=== PATIENT | female | born 1960 | race American Indian/Alaskan Native ===

== ENCOUNTER 2017-09-05 13:32 | Day surgery (SDC) | payer OTHER ==
--- NOTE | 2017-09-05 14:29 | Anesthesia Consultation ---
Anesthesia Consult and Med Hx Date of service: 09/05/17 - Airway Anesthetic Teeth Evaluation: Poor ROM Head & Neck: Adequate Mental/Hyoid Distance: Adequate Mallampati Class: Class III Intubation Access Assessment: Probably Good - Pulmonary Exam CTA: Yes - Cardiac Exam Cardiac Exam: RRR - Pre-Operative Health Status ASA Pre-Surgery Classification: ASA2 Proposed Anesthetic Plan: General - Pulmonary Hx Smoking: Yes (Occasionally) - Cardiovascular System Hx Hypertension: Yes - Additional Comments Anesthesia Medical History Comments: NAC
--- NOTE | 2017-09-05 14:29 | Anesthesia Day of Surgery ---
Anesthesia Day of Surgery - Day of Surgery Patient Examined: Yes Patient H&P Reviewed: Yes Patient is NPO: Yes
[2017-09-05] MEDS ORDERED: NACL 0.9% 1000 ML 1,000 ML IV SCH (16:00)
[2017-09-05] MEDS ORDERED: WATER FOR IRRIG STERILE IR ONE ×2 (16:25→18:14)
[2017-09-05] MEDS ORDERED: XYLOCAINE MPF 2% ONE (16:30)
[2017-09-05] MEDS ORDERED: DIPRIVAN 10 MG/ML IV ONE ×2 (18:16)
--- NOTE | 2017-09-05 19:09 | Operative Report ---
Operative Report Operative Report: Date of procedure: 09/05/2017 Procedure: Colonoscopy with Endoscopic mucosal resection, snare polypectomy with Hemoclip application. Attending physician: Glenroy Quigley MD Speech Teacher: Glenroy Quigley MD Indication: Patient is a 54-year-old male who presents for colorectal cancer screening. Patient had a positive fecal DNA testing. This colonoscopy serves to evaluate patient so that treatment may be directed based on the findings. Consent: Informed consent was obtained after advising the patient and family regarding nature of this procedure, its indications, potential benefits as well as possible complications including but not limited to bleeding perforation and adverse reaction to medication, infection as well as other cardiopulmonary complications. An informed written and verbal consent was then obtained after due opportunity was provided for questions and answers. Monitoring: Patient was monitored continuously with pulse oximetry and electrocardiographic recordings as well as blood pressure recordings. Vital signs remained stable throughout this procedure with no untoward events. Preoperative assessment: Patient was assessed immediately prior to this procedure for capacity to tolerate monitored anesthesia care and moderate sedation as well as general anesthesia. Patient's ASA classification is 2, Mallampati class is 2, Hyomental distance is 3. Instrument: Fujinon videocolonoscope. [employer] video endoscope. Multiple band ligator: Speedband SuperView Super 7 ([employer]) Medications: Propofol given intravenously in divided doses. For details please refer to anesthesia records. Description of procedure: Patient was placed in the left lateral decubitus position after achieving sedation, a digital rectal examination was performed following which the colonoscope was introduced into the anal verge and advanced to the cecum which was identified by the ileocecal valve, the appendiceal orifice, as well as by the cecal strap and direct transillumination. The colonoscope was subsequently withdrawn with careful inspection of all mucosal surfaces. Patient tolerated this procedure well and was subsequently taken to the recovery room. The following findings were noted. Findings: Patient had a broad-based but semi-pedunculated polyp measuring about 1.5 cm in the sigmoid colon. This was removed by snare electrocautery. In the transverse colon, patient had 2 polyps measuring approximately 8 mm each. These were removed by snare electrocautery. There was a broad-based sessile polyp seen in the transverse colon. This was elevated with submucosal injection of saline and snare polypectomy was performed. The defect at the site was then closed with a Hemoclip. The ascending colon appeared normal . The cecum appeared normal . The sigmoid colon was normal. There were a few scattered diminutive diverticula seen in the sigmoid and descending colon. On the retroflex examination at the anal verge, patient had internal hemorrhoids. Impression: Transverse colon polyp status post endoscopic mucosal resection( submucosal injection with snare electrocautery and closure of mucosal defect with Hemoclip.). Transverse colon polyps status post snare polypectomy . Sigmoid colon polyp status post snare polypectomy. Colonic diverticulosis Prominent friable Internal hemorrhoids, status post successful hemorrhoidal band ligation. Plan: Follow-up pathology report High-fiber diet. Repeat colonoscopy in 1 year given findings of multiple colon polyps
--- NOTE | 2017-09-05 19:12 | Discharge Summary ---
Short Stay Discharge Plan Activity: advance as tolerated Weight Bearing Status: Weight Bear as Tolerated Diet: regular Additional Instructions: Post Sedation D/C Instructions When you return home you may resume your regular diet unless otherwise directed. -Go directly home from the hospital and rest quietly. You may resume normal activities tomorrow. -Do NOT drive, return to work, operate any machinery or make any important personal or business decisions today. -Do NOT drink any alcohol or take nerve or sleeping drugs. They add to the effects of the medicine still present in your body. Follow up with Dr. Quigley in 2 weeks to obtain pathology results and treatment plan. Follow up with: KRISHNA COLEMAN DO [Primary Care Provider] - 7 Days
[2017-09-05 19:22] VITALS: BP 140/78
== END 2017-09-05 13:33 | disposition home or self-care (01) ==
LOC: GIO 13:32
PROVIDERS: ATTEND Internal Medicine Gastroenterology
DX: Z12.11 Encounter for screening for malignant neoplasm of colon (principal); D12.5 Benign neoplasm of sigmoid colon; D12.3 Benign neoplasm of transverse colon; K57.30 Diverticulosis of large intestine without perforation or abscess without bleeding; K64.8 Other hemorrhoids; I10 Essential (primary) hypertension; F17.210 Nicotine dependence, cigarettes, uncomplicated
CPT/HCPCS: 45381; 45385; 45398; 88305; J2704; J7030

== ENCOUNTER 2020-05-02 11:24 | Outpatient (CLI) | payer OTHER ==
--- NOTE | 2020-05-02 14:00 | XRay Report ---
HISTORY:RIGHT WRIST PAIN COMPARISON: None. TECHNIQUE: AP lateral and obliques views were obtained FINDINGS: Bones: Comminuted fracture with impaction of the distal radius metaphyseal diaphyseal region extendin g into the articular space is noted. Ulnar styloid fracture present Joint spaces: Maintained. Soft tissues: No significant abnormality. Additional findings: None. IMPRESSION: 1. Fracture distal radius and ulnar styloid as noted Signer Name: Syed Correa MD Signed: 05/02/2020 1:55 PM Workstation Name: [id number]
== END 2020-05-02 11:25 | disposition home or self-care (01) ==
LOC: XRAY 11:24
PROVIDERS: ATTEND Orthopaedic Surgery
DX: S52.91XA Unspecified fracture of right forearm, initial encounter for closed fracture (principal); X58.XXXA Exposure to other specified factors, initial encounter; Y93.89 Activity, other specified; Y92.89 Other specified places as the place of occurrence of the external cause; Y99.8 Other external cause status

== ENCOUNTER 2020-05-05 10:38 | Day surgery (SDC) | payer OTHER ==
[~2020-05-05 10:38] MED LIST: ACETAMINOPHEN 500 MG TAB PO SCH; BUPIVACAINE/PF (0.25%) 2.5 MG/ML 30 ML VIAL INFILTRATI ONE; LACTATED RINGERS 1,000 ML IV SCH; MIDAZOLAM 2 MG/2 ML INJ IV NR; SODIUM CHLORIDE 0.9% IRR 1,500 ML BOTTLE IR ONE; ceFAZolin/Water 2 GM/20 ML 2 GM/20 ML SYRINGE IV NR; fentaNYL 100 MCG/2 ML INJ IV PRN
--- NOTE | 2020-05-05 11:17 | Anesthesia Day of Surgery ---
Anesthesia Day of Surgery - Day of Surgery Patient Examined: Yes Patient H&P Reviewed: Yes Patient is NPO: Yes
--- NOTE | 2020-05-05 11:17 | Anesthesia Consultation ---
Anesthesia Consult and Med Hx Date of service: 05/05/20 - Airway Anesthetic Teeth Evaluation: Good, Chipped ROM Head & Neck: Adequate Mental/Hyoid Distance: Adequate Mallampati Class: Class III Intubation Access Assessment: Possibly Difficult - Pre-Operative Health Status ASA Pre-Surgery Classification: ASA2 Proposed Anesthetic Plan: General (declines nerve block) - Pulmonary Hx Smoking: Yes (smokes 1 day per week) Hx Respiratory Symptoms: No - Cardiovascular System Hx Hypertension: Yes Hx Heart Attack/AMI: No Hx Percutaneous Transluminal Coronary Angioplasty (PTCA): No - Central Nervous System CVA: No - Endocrine Hx Renal Disease: No Hx Liver Disease: No Hx Insulin Dependent Diabetes: No Hx Non-Insulin Dependent Diabetes: No Hx Thyroid Disease: No - Other Systems Hx Obesity: Yes (BMI 32) - Additional Comments Anesthesia Medical History Comments: No hx anesthetic complications.
[2020-05-05] MEDS ORDERED: ONDANSETRON 4 MG/2 ML INJ IV PRN (11:30)
[2020-05-05] MEDS ORDERED: HYDROmorphone 1 MG/1 ML INJ ONE (12:27)
[2020-05-05] MEDS ORDERED: propofoL 200 MG/20 ML VIAL IV ONE (12:27)
[2020-05-05] MEDS ORDERED: LIDOCAINE MPF (2%) 20 MG/1 ML VIAL 5 ML ONE (12:28)
[2020-05-05] MEDS ORDERED: BUPIVACAINE/PF (0.25%) 2.5 MG/ML 30 ML VIAL INFILTRATI ONE ×2 (12:51→14:27)
[2020-05-05] MEDS ORDERED: SODIUM CHLORIDE 0.9% IRR 1,500 ML BOTTLE IR ONE (14:22)
[2020-05-05] MEDS ORDERED: ONDANSETRON 4 MG/2 ML INJ ONE (14:25)
[2020-05-05] MEDS ORDERED: KETOROLAC 30 MG/1 ML INJ ONE (14:25)
--- NOTE | 2020-05-05 14:36 | Procedure Note ---
Date of procedure: 05/05/20 Pre-op diagnosis: Displaced comminuted intra-articular right distal radius fracture Post-op diagnosis: same Procedure: Closed reduction insertion of intramedullary nail right distal radius Procedure The patient was brought to the OR after being given a axillary nerve block for postop pain management, she was placed on the OR table in supine position following induction with MAC anesthesia the patient's right upper extremity was prepped and draped in the usual sterile manner. A timeout procedure was done to identify the patient and the correct operative site next the arm was then exsanguinated followed by inflation of the pneumatic tourniquet to 250 mmHg using C arm the fracture was then manipulated into a more reduced or anatomic position the right distal radius was then held in place via temporary K wire fixation following this an incision was made over the Alida's tubercle this was then taken down sharply through skin and subcu care was taken to protect the soft tissue structures next using a 0.62 K wire the distal entry portal was es tablished this was then overreamed next using the broach the distal fragment as well as the medullary canal proximally were aligned following this a size 2 micro nail was inserted using the the targeting device 3 screws were inserted into the distal fragment followed by 2 placed dorsally in the proximal fragment AP and lateral views were obtained showing good reduction of the fracture and placement of our hardware. Next the wounds were then copiously irrigated and was closed in a standard routine fashion postop dressings were applied as well as a well-padded forearm splint. Anesthesia: MAC Surgeon: MALACHI ZELAYA (Quin Chandler, 1st assist) Estimated blood loss: minimal Pathology: none Condition: stable Disposition: PACU
[2020-05-05] MEDS: HYDROmorphone 1 MG/1 ML INJ IV PRN ×3 (15:09→15:59)
--- NOTE | 2020-05-05 15:36 | Post Anesthesia Evaluation ---
- Post Anesthesia Evaluation Patient Participated: Yes Airway Patent: Yes Stable Respiratory Function: Yes Nausea/Vomiting: No Temp > 96.8F: Yes Pain Manageable: Yes Adequeate Hydration: Yes Anesthesia Complications: No
[2020-05-05] MEDS ORDERED: HYDROcodone/ACETAMINOPHEN 5-325 MG TAB PO ONE (16:00)
--- NOTE | 2020-05-05 16:31 | XRay Report ---
INTRAOPERATIVE FLUOROSCOPY: RIGHT WRIST INDICATION / CLINICAL INFORMATION: RT WRIST FX. TECHNIQUE: Intraoperative spot images were obtained during the procedure. FINDINGS: Intraoperative fluoroscopic views of the right wrist were obtained during ORIF of a distal radius fra cture. Fluoroscopy Time: 47 seconds. Fluoroscopy Images: 2. Signer Name: Gerson Lin MD Signed: 05/05/2020 4:26 PM Workstation Name: [id number]
[2020-05-05 16:48] VITALS: BP 131/88
== END 2020-05-05 16:50 | disposition home or self-care (01) ==
LOC: OR 10:38
PROVIDERS: ATTEND Orthopaedic Surgery
DX: S52.571A Other intraarticular fracture of lower end of right radius, initial encounter for closed fracture (principal); F17.210 Nicotine dependence, cigarettes, uncomplicated; I10 Essential (primary) hypertension; E66.9 Obesity, unspecified; Z72.89 Other problems related to lifestyle; Z79.899 Other long term (current) drug therapy; Z98.890 Other specified postprocedural states; Z68.32 Body mass index [BMI] 32.0-32.9, adult; X58.XXXA Exposure to other specified factors, initial encounter; Y93.89 Activity, other specified; Y92.89 Other specified places as the place of occurrence of the external cause; Y99.8 Other external cause status
CPT/HCPCS: 25609; 73100; C1713; J0690; J1170; J1885; J2250; J2405; J2704; J7120; J3010

== ENCOUNTER 2020-08-08 10:48 | Outpatient (CLI) | payer OTHER ==
--- NOTE | 2020-08-08 11:41 | XRay Report ---
RIGHT WRIST 3 VIEWS INDICATION / CLINICAL INFORMATION: RIGHT WRIST PAIN. COMPARISON: 05/02/2020 FINDINGS: ORIF of distal radial fracture. There is an old ununited ulnar styloid process fracture. There may be widening of the scapholunate joint. Signer Name: Dylan Lin MD FACJessica Signed: 08/08/2020 11:36 AM Workstation Name: [email or web address]
== END 2020-08-08 10:49 | disposition home or self-care (01) ==
LOC: XRAY 10:48
PROVIDERS: ATTEND Orthopaedic Surgery
DX: S52.501A Unspecified fracture of the lower end of right radius, initial encounter for closed fracture (principal); X58.XXXA Exposure to other specified factors, initial encounter; Y93.89 Activity, other specified; Y92.89 Other specified places as the place of occurrence of the external cause; Y99.8 Other external cause status